=== PATIENT | male | born 1955 | race Caucasian/White ===

== ENCOUNTER 2018-03-08 15:24 | Emergency (ER) | payer OTHER ==
[2018-03-08] MEDS ORDERED: Sodium Chloride 0.9% 10 ML Syringe FLUSH PRN (16:04)
[2018-03-08] MEDS ORDERED: Furosemide 40 MG/4 ML VIAL IVPUSH ONE (16:05)
[2018-03-08] MEDS ORDERED: Sodium Chloride 0.9% 1,000 ML IV SCH (18:00)
[2018-03-08] MEDS ORDERED: Furosemide 20 MG/2 ML VIAL ONE (21:46)
[2018-03-08] MEDS ORDERED: Pantoprazole 40 MG Vial ONE ×2 (22:12→22:21)
[2018-03-08] MEDS ORDERED: Sodium Chloride 0.9% 100 ML ONE ×2 (22:16→22:21)
[2018-03-09] MEDS ORDERED: Furosemide 20 MG/2 ML VIAL ONE (01:28)
--- NOTE | 2018-03-09 07:05 | EDM.PDOC ---
ED HPI GENERAL MEDICAL PROBLEM - General Chief Complaint: Cardiovascular Problem Stated Complaint: SWOLLEN ANKLES/TROUBLE WALKING Time Seen by Provider: 03/08/18 15:44 Source of Information: Reports: Patient, Family History Limitations: Reports: No Limitations - History of Present Illness INITIAL COMMENTS - FREE TEXT/NARRATIVE: The patient presents with bilateral leg pain and shortness of breath. This has been going on for a few weeks. He is short of breath with exertion. He has no history of CHF. He has no chest pain, cough, fever, chills, abdominal pain, nausea or vomiting. He has no history of heart disease. 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 He admits to drinking daily usually after work. Onset: Gradual Duration: Week(s): Severity: Moderate Improves with: Reports: Immobilization Worsens with: Reports: Movement Associated Symptoms: Reports: Shortness of Breath. Denies: Chest Pain, Cough, Fever/Chills, Nausea/Vomiting Bilateral Ankle Pain Score (Numeric/FACES): 2 - Related Data Allergies Allergy/AdvReac Type Severity Reaction Status Date / Time morphine Allergy Hives Verified 03/08/18 15:42 Past Medical History HEENT History: Reports: Impaired Vision Cardiovascular History: Reports: Hypertension Social & Family History - Tobacco Use Smoking Status *Q: Current Every Day Smoker Years of Tobacco use: 40 Packs/Tins Daily: 0.2 - Recreational Drug Use Recreational Drug Use: No ED ROS GENERAL - Review of Systems Review Of Systems: See Below Constitutional: Reports: No Symptoms HEENT: Reports: No Symptoms Respiratory: Reports: Shortness of Breath Cardiovascular: Reports: Edema. Denies: Chest Pain Endocrine: Reports: No Symptoms GI/Abdominal: Reports: No Symptoms : Reports: No Symptoms Musculoskeletal: Reports: No Symptoms Skin: Reports: No Symptoms Neurological: Reports: No Symptoms ED EXAM, GENERAL - Physical Exam Exam: See Below Exam Limited By: No Limitations General Appearance: Alert, No Apparent Distress Ears: Normal External Exam Nose: Normal Inspection Head: Atraumatic, Normocephalic Neck: Normal Inspection Respiratory/Chest: No Respiratory Distress, Decreased Breath Sounds, Rales Cardiovascular: Regular Rate, Rhythm, No Murmur, Other (Edema to both legs) GI/Abdominal: Soft, Non-Tender, No Organomegaly Rectal (Males) Exam: Heme + Stool (Weakly positive) Back Exam: Normal Inspection Extremities: Other (Moderate bilateral leg edema) Course - Vital Signs Last Recorded V/S: Last Vital Signs Temp 99.8 F 03/08/18 18:23 Pulse 99 03/08/18 15:38 Resp 22 H 03/08/18 18:23 BP 107/60 03/08/18 18:23 Pulse Ox 94 L 03/08/18 18:23 - Orders/Labs/Meds Orders: Active Orders 24 hr Category Date Time Status Cardiac Monitoring [RC] . DIRECTED Care 03/08/18 16:04 Active Oxygen Therapy [RC] PRN Care 03/08/18 16:04 Active Peripheral IV Care [RC] . DIRECTED Care 03/08/18 16:05 Active Chest 1V Frontal [CR] Stat Exams 03/08/18 16:05 Taken PATIENT RETYPE [BBK] Stat Lab 03/08/18 16:15 Results RED BLOOD CELLS LP [BBK] Stat Lab 03/08/18 16:15 Results TYPE AND SCREEN [BBK] Stat Lab 03/08/18 16:15 Results Peripheral IV Insertion Adult [OM.PC] Stat Oth 03/08/18 16:04 Ordered Transfuse PRBC [Transfuse Red Blood Cells] [COMM] Stat Oth 03/08/18 16:36 Ordered Labs: Laboratory Tests 03/08/18 03/08/18 03/08/18 Range/Units 16:15 16:15 16:15 WBC 7.39 (4.23-9.07) K/mm3 RBC 2.18 L (4.63-6.08) M/mm3 Hgb 4.5 L* (13.7-17.5) gm/L Hct 16.9 L (40.1-51.0) % MCV 77.5 L (79.0-92.2) fl MCH 20.6 L (25.7-32.2) pg MCHC 26.6 L (32.2-35.5) g/dl RDW Std Deviation 51.4 H (35.1-43.9) fL Plt Count 178 (163-337) K/mm3 MPV 10.4 (9.4-12.3) fl Neut % (Auto) 67.8 (34.0-67.9) % Lymph % (Auto) 15.3 L (21.8-53.1) % Gates % (Auto) 15.8 H (5.3-12.2) % Eos % (Auto) 0.5 L (0.8-7.0) Baso % (Auto) 0.3 (0.1-1.2) % Neut # (Auto) 5.01 (1.78-5.38) K/mm3 Lymph # (Auto) 1.13 L (1.32-3.57) K/mm3 Gates # (Auto) 1.17 H (0.30-0.82) K/mm3 Eos # (Auto) 0.04 (0.04-0.54) K/mm3 Baso # (Auto) 0.02 (0.01-0.08) K/mm3 Manual Slide Review Abnormal smear PT (9.5-12.1) SECONDS INR APTT (24-31) SECONDS Sodium 134 L (136-145) mEq/L Potassium 4.4 (3.5-5.1) mEq/L Chloride 99 (98-107) mEq/L Carbon Dioxide 27 (21-32) mEq/L Anion Gap 12.4 (5-15) BUN 26 H (7-18) mg/dL Creatinine 1.3 (0.7-1.3) mg/dL Est Cr Clr Drug Dosing 55.54 mL/min Estimated GFR (MDRD) 56 (>60) mL/min BUN/Creatinine Ratio 20.0 H (14-18) Glucose 172 H (80-115) mg/dL Calcium 8.6 (8.5-10.1) mg/dL Total Bilirubin 1.1 H (0.2-1.0) mg/dL AST 60 H (15-37) U/L ALT 51 (16-63) U/L Alkaline Phosphatase 109 (46-116) U/L Troponin I 0.039 (0.00-0.056) ng/mL NT-Pro-B Natriuret Pep 773 H (0-125) pg/mL Total Protein 6.1 L (6.4-8.2) g/dl Albumin 2.7 L (3.4-5.0) g/dl Globulin 3.4 gm/dL Albumin/Globulin Ratio 0.8 L (1-2) Ethyl Alcohol (0.00) gm% Blood Type Gel Antibody Screen Crossmatch 03/08/18 03/08/18 03/08/18 Range/Units 16:15 16:15 16:15 WBC (4.23-9.07) K/mm3 RBC (4.63-6.08) M/mm3 Hgb (13.7-17.5) gm/L Hct (40.1-51.0) % MCV (79.0-92.2) fl MCH (25.7-32.2) pg MCHC (32.2-35.5) g/dl RDW Std Deviation (35.1-43.9) fL Plt Count (163-337) K/mm3 MPV (9.4-12.3) fl Neut % (Auto) (34.0-67.9) % Lymph % (Auto) (21.8-53.1) % Gates % (Auto) (5.3-12.2) % Eos % (Auto) (0.8-7.0) Baso % (Auto) (0.1-1.2) % Neut # (Auto) (1.78-5.38) K/mm3 Lymph # (Auto) (1.32-3.57) K/mm3 Gates # (Auto) (0.30-0.82) K/mm3 Eos # (Auto) (0.04-0.54) K/mm3 Baso # (Auto) (0.01-0.08) K/mm3 Manual Slide Review PT 13.6 H (9.5-12.1) SECONDS INR 1.25 APTT 26 (24-31) SECONDS Sodium (136-145) mEq/L Potassium (3.5-5.1) mEq/L Chloride (98-107) mEq/L Carbon Dioxide (21-32) mEq/L Anion Gap (5-15) BUN (7-18) mg/dL Creatinine (0.7-1.3) mg/dL Est Cr Clr Drug Dosing mL/min Estimated GFR (MDRD) (>60) mL/min BUN/Creatinine Ratio (14-18) Glucose (80-115) mg/dL Calcium (8.5-10.1) mg/dL Total Bilirubin (0.2-1.0) mg/dL AST (15-37) U/L ALT (16-63) U/L Alkaline Phosphatase (46-116) U/L Troponin I (0.00-0.056) ng/mL NT-Pro-B Natriuret Pep (0-125) pg/mL Total Protein (6.4-8.2) g/dl Albumin (3.4-5.0) g/dl Globulin gm/dL Albumin/Globulin Ratio (1-2) Ethyl Alcohol 0.00 (0.00) gm% Blood Type O POSITIVE Gel Antibody Screen Negative Crossmatch See Detail Meds: Medications Discontinued Medications Generic Name Dose Route Start Last Admin Trade Name Frerosemary PRN Reason Stop Dose Admin Furosemide 40 mg 03/08/18 16:05 03/08/18 16:18 Lasix IVPUSH 03/08/18 16:06 40 mg NOW ONE Administration Furosemide Confirm 03/08/18 21:46 Lasix Administered 03/08/18 21:47 Dose 20 mg .ROUTE .STK-MED ONE Sodium Chloride 1,000 mls @ 50 mls/hr 03/08/18 18:00 03/08/18 18:02 Normal Saline IV 50 mls/hr ASDIRECTED BRANDON Administration Sodium Chloride Confirm 03/08/18 22:16 Normal Saline Administered 03/08/18 22:17 Dose 100 mls @ as directed .ROUTE .STK-MED ONE Sodium Chloride Confirm 03/08/18 22:21 Normal Saline Administered 03/08/18 22:22 Dose 100 mls @ as directed .ROUTE .STK-MED ONE Pantoprazole Sodium Confirm 03/08/18 22:12 Protonix Iv Administered 03/08/18 22:13 Dose 160 mg .ROUTE .STK-MED ONE Pantoprazole Sodium Confirm 03/08/18 22:21 Protonix Iv Administered 03/08/18 22:22 Dose 40 mg .ROUTE .STK-MED ONE Sodium Chloride 10 ml 03/08/18 16:04 03/08/18 16:19 Saline Flush FLUSH 10 ml ASDIRECTED PRN Administration Keep Vein Open - Re-Assessments/Exams Free Text/Narrative Re-Assessment/Exam: 03/09/18 07:13 I ordered an IV saline lock, lasix 40mg IV, labs, and a CXR. 03/09/18 07:14 His EKG shows a NSR with no acute changes. His WBC was normal at 7.39. His Hgb was very low at 4.5. I did a rectal exam and it was weakly positive. His platelets are negative. His PT and PTT look good. His Na was a little low at 134. His glucose was elevated at 172. His AST was elevated at 60. His troponin was negative. His BNP was 773. His ETOH was negative. His CXR shows cardiomegaly with some congestive changes. I feel he needs to be admitted. I called Dr Arias and she accepted the patient. I also talked with our general surgeon Dr Goins and he will be on consult. I ordered a protonix bolus and drip. I type and crossed him for 3 units with some lasix between. The patient and family called me into the room and they would like to go back to [place]. The hospitalist told them that he could be in the hospital for 6 to 7 days. He is a heavy drinker and he may need to detox and get multiple units of blood and possibly get a colonoscopy or EGD. He does not want to do that. He is from [place] and his needs to get back to work. I informed him that is the safest thing to do. I did offer to transfer him by ambulance or by air but if we bypass the closest appropriate hospital which is [place] part of the bill may not be payed for. He would like to go himself to [place]. I offered to keep him in the ER and give him blood through the night and send him in the morning. He was okay with that plan. He did great through the night. His Hgb is 7.3. He would like to go now. I still want him to go by Ambulance or air but he and his politely refuse. I called [facility] in [place] and talked with Real the one call nurse and she highly recommended he come by ambulance or air also. Being that he is coming by private vehicle he will have to go to their ER. Dr Romo was the accepting physician. Departure - Departure Time of Disposition: 08:00 Disposition: DC/Tfer to Acute Hospital 02 Condition: Serious Clinical Impression: Anemia Qualifiers: Anemia type: unspecified type Qualified Code(s): D64.9 - Anemia, unspecified GI bleed Qualifiers: GI bleed type/associated pathology: unspecified gastrointestinal hemorrhage type Qualified Code(s): K92.2 - Gastrointestinal hemorrhage, unspecified - My Orders Last 24 Hours: My Active Orders 03/08/18 16:04 Cardiac Monitoring [RC] . DIRECTED Oxygen Therapy [RC] PRN Peripheral IV Insertion Adult [OM.PC] Stat 03/08/18 16:05 Peripheral IV Care [RC] . DIRECTED Chest 1V Frontal [CR] Stat 03/08/18 16:15 PATIENT RETYPE [BBK] Stat RED BLOOD CELLS LP [BBK] Stat TYPE AND SCREEN [BBK] Stat 03/08/18 16:36 Transfuse PRBC [Transfuse Red Blood Cells] [COMM] Stat - Assessment/Plan Last 24 Hours: My Active Orders 03/08/18 16:04 Cardiac Monitoring [RC] . DIRECTED Oxygen Therapy [RC] PRN Peripheral IV Insertion Adult [OM.PC] Stat 03/08/18 16:05 Peripheral IV Care [RC] . DIRECTED Chest 1V Frontal [CR] Stat 03/08/18 16:15 PATIENT RETYPE [BBK] Stat RED BLOOD CELLS LP [BBK] Stat TYPE AND SCREEN [BBK] Stat 03/08/18 16:36 Transfuse PRBC [Transfuse Red Blood Cells] [COMM] Stat
--- NOTE | 2018-03-09 09:02 | PCM.SN ---
- Free Text/Narrative Note: THIS PATIENT DECIDED TO GET MEDICAL CARE MET IN [place] WITH HIS PCP, HE WAS DC FROM THE ED
--- NOTE | 2018-03-09 10:27 | CR ---
Chest: Portable view of the chest was obtained. Comparison: No prior chest x-ray. Heart is enlarged. Pulmonary vessels are slightly increased possibly due to mild pulmonary vascular congestion. Lungs otherwise are clear. Bony structures are grossly intact. Impression: 1. Cardiomegaly with possible mild pulmonary vascular congestion. Diagnostic code #3
== END 2018-03-09 08:40 ==
LOC: JD.ED 15:24 → UNDOADMIN 18:39 → JD.MS 18:39 → UNDOADMIN 18:47 → UNDODISIN 19:07
DX: K92.2 Gastrointestinal hemorrhage, unspecified (principal); D64.9 Anemia, unspecified; I10 Essential (primary) hypertension; F17.210 Nicotine dependence, cigarettes, uncomplicated; Z88.5 Allergy status to narcotic agent
CPT/HCPCS: 36415; 71045; 80053; 83880; 84484; 85018; 85025; 85610; 85730; 93005; 96365; 96366; 96375; 96376; 99285; A9270; C9113; G0480; J1940; J7030; J7040; J7050; P9016